=== PATIENT | female | born 1975 | race Caucasian/White ===

== ENCOUNTER → 2017-07-12 | Day surgery (SDC) | payer BC ==
[2017-06-13 12:27] VITALS: Ht 162.6 cm; Wt 60.0 kg
[~2017-07-12] VITALS: Ht 162.6 cm; Wt 60.0 kg
[~2017-07-12] MED LIST: ATROPINE SULFATE 0.1 MG/ML 5ML SYR IV PRN; CHOL1TAB42 PO; DEXAMETHASONE SOD INJ 4 MG/ML VIAL ONE; EpHEDrine SULFATE INJ 50 MG/ML AMP IV PRN; FENTANYL CITRATE INJ 50 MCG/1 ML 2 ML VIAL IV PRN; FENTANYL CITRATE INJ 50 MCG/1 ML 2 ML VIAL ONE; IBUPROFEN 600 MG TAB PO PRN; KETOROLAC TROMETHAMINE 30 MG/ML VIAL IV. PRN; LACTATED RINGER'S 1000ML 1,000 ML IV SCH; LIDOCAINE HCL 2% 2 ML VIAL (20MG/ML) ONE; MIDAZOLAM HCL 1 MG/ML 2ML VIAL ONE; MULT-506 PO; MoRPHine SULFATE 2 MG/ML CARP IV PRN; MoRPHine SULFATE 4 MG/ML 1 ML CARP\\VIAL IV PRN; ONDANSETRON INJ 2 MG/ML 2 ML VIAL IV PRN; ONDANSETRON INJ 2 MG/ML 2 ML VIAL ONE; OXYCODONE/ACETAMINOPHEN 5-325 TAB PO PRN; PROPOFOL IV EMULSION 10 MG/ML 20 ML VIAL IV ONE; SODIUM CHLORIDE 0.9% 1000ML 1,000 ML IV SCH
--- NOTE | 2017-07-12 10:45 | History & Physical Bridge - [place] ---
H&P Re-Evaluation Bridge Note: I have examined the patient, reviewed the History & Physical and in the interval since the performance of the History & Physical I have noted the following changes of clinical significance: No changes noted
--- NOTE | 2017-07-12 12:13 | Discharge Instructions ---
Discharge Instructions Date of Service Jul 12, 2017. Visit Reason for Visit: Thickened Endometrium, Endometrial Mass Discharge Discharge Diagnosis / Problem: s/p D&C/hysteroscopy Discharge Goals Goal(s): Specific goals Activity Recommendations Activity Limitations: per Instructions/Follow-up section Anesthesia . Post Anesthesia Instructions: If you have had General Anesthesia or IV Sedation: * Do not drive today. * Resume driving when surgeon permits. * Do not make important decisions or sign legal documents today. * Call surgeon for: 1. Temperature elevations greater than 101 degrees F. 2. Uncontrollable pain. 3. Excessive bleeding. 4. Persistent nausea and vomiting. 5. Medication intolerance (nausea, vomiting or rash). * For nausea and vomiting use only clear liquids such as: tea, soda, bouillon until nausea subsides, then gradually increase diet as tolerated. * If you have any concerns or questions, call your surgeon's office. If physician is unavailable and it is an emergency, call 911 or go to the nearest emergency room. . Instructions / Follow-Up Instructions / Follow-Up ACTIVITY RECOMMENDATIONS: * Avoid tampons, douching, hot tubs, pools, and intercourse until bleeding has stopped. * May shower as usual. * No strenuous activity for 24-48 hours. After 24-48 hours, you may do anything you feel like doing (driving and sports are okay). SPECIAL CARE INSTRUCTIONS: Special Diet: * Mild nausea may occur in the immediate post-operative period. * Take clear liquids such as tea, cola or bouillon until all nausea has subsided; you may then resume your normal diet. Special Care: * Light bleeding and vaginal spotting can last from a few days to 3-4 weeks. Call your doctor if bleeding becomes heavier than the heaviest part of your period. * Check your temperature twice a day for one week. If it goes above 100.4 degrees Fahrenheit (38.0 Celsius), notify your doctor. * Call your doctor's office for an appointment for 6 weeks after your surgery. FOLLOW-UP VISIT: Call your doctor's office for an appointment for 6 weeks after your surgery. Diet Recommendations Recommended Home Diet: no limitations, resume previous diet Procedures Procedures Performed: Dilatation & Curettage, Hysteroscopy, Polypectomy with Myosure Pending Studies Studies pending at discharge: no Medical Emergencies . Who to Call and When: Medical Emergencies: If at any time you feel your situation is an emergency, please call 911 immediately. . Non-Emergent Contact Non-Emergency issues call your: Rad Tech . . "Provider Documentation" section prepared by Raven Morris. .
--- NOTE | 2017-07-12 12:14 | [facility] Post Operative Brief Note ---
Immediate Operative Summary Operative Date Jul 12, 2017. Pre-Operative Diagnosis Thickened Endometrium, Endometrial Mass Post-Operative Diagnosis Same Procedure(s) Performed Dilatation & Curettage, Hysteroscopy, Polypectomy with Myosure Surgeon Dr. Morris Gate Shear Operator Surgeon(s) None Estimated Blood Loss 5 ml Findings uterus sounded to 10cm. fluffy and irregular endometrium, could not appreciate a polyp Fluids (cc crystalloids) 450cc, 65 cc deficit Specimens A.) Endometrial Curettings Drains none Anesthesia lma Complication(s) None Disposition Recovery Room / PACU
[2017-07-12 13:18] VITALS: TEMP 37.3
[2017-07-12 13:31] VITALS: BP 133/88; PULSE 83; O2SAT 100
--- NOTE | 2017-07-12 13:32 | Anesthesia Progress Nt - [facility] ---
Anesthesia Post Op Note Date & Time Jul 12, 2017 at 13:32 Vital Signs Pain Intensity: 0 Vital Signs Past 12 Hours Date Time Temp Pulse Resp B/P (MAP) Pulse Ox O2 Delivery O2 Flow Rate FiO2 07/12/17 13:18 37.3 64 16 128/82 (97) 100 Room Air 07/12/17 12:56 37.3 74 15 07/12/17 12:56 74 15 116/77 100 07/12/17 12:51 75 15 07/12/17 12:51 74 15 119/85 100 07/12/17 12:46 74 17 07/12/17 12:46 75 17 121/91 98 07/12/17 12:41 78 9 118/83 100 07/12/17 12:41 78 9 07/12/17 12:36 74 15 07/12/17 12:36 75 15 126/89 100 07/12/17 12:31 36.8 86 12 130/92 100 Mask 6 07/12/17 12:31 69 13 07/12/17 12:31 67 13 119/90 100 07/12/17 12:26 79 12 130/86 100 07/12/17 12:26 79 12 07/12/17 12:22 130/92 07/12/17 09:57 36.7 110 16 146/91 (109) 99 Room Air Notes Mental Status: alert / awake / arousable, participated in evaluation Pt Amnestic to Procedure: Yes Nausea / Vomiting: adequately controlled Pain: adequately controlled Airway Patency, RR, SpO2: stable & adequate BP & HR: stable & adequate Hydration State: stable & adequate Anesthetic Complications: no major complications apparent
--- NOTE | 2017-07-17 15:46 | OPERATIVE REPORT ---
DATE OF OPERATION: 07/12/2017 PREOPERATIVE DIAGNOSES: Thickened endometrium with endometrial mass, suspected endometrial mass. POSTOPERATIVE DIAGNOSIS: Same. PROCEDURE: D&C, hysteroscopy and possible polypectomy with MyoSure. SURGEON: Raven Morris M.D. ANESTHESIA: General per laryngeal mask. ESTIMATED BLOOD LOSS: 5 mL. FLUIDS: 450 mL of IV fluids with a 65 mL deficit. INDICATIONS: The patient is a 41-year-old white female who was having an ultrasound to follow up on findings of a complex left ovarian cyst. At the time of her most recent ultrasound a very thickened endometrium was noted. SIS revealed thickened endometrium with probable endometrial mass. The patient underwent a D&C, hysteroscopy with polypectomy in the past and so was advised to proceed with this again. FINDINGS: At the time of surgery revealed the uterus to be sounded to 10 cm. Fluffy irregular endometrium was appreciated, especially on the anterior abdominal wall. No appreciable polyp could be noted. COMPLICATIONS: None. DRAINS: None. DISPOSITION: To recovery room in stable condition. PROCEDURE: The patient was taken to the operating room where she was identified verbally and by bracelet. She was placed in dorsal supine position where general anesthesia was induced without difficulty. She was placed in dorsal lithotomy position, prepped and draped in normal sterile fashion. Timeout was held identifying correct patient, procedure and positioning. The bladder was drained of urine and exam under anesthesia revealed a normal size, slightly anteverted uterus that was mobile. There were no appreciable adnexal masses or tenderness. A weighted speculum was placed in the posterior vagina and the anterior lip of the cervix was grasped with single tooth tenaculum. The uterus sounded to 10 cm, was dilated to #23 Hegar dilator. The MyoSure hysteroscope was introduced into the uterus with the above noted findings. The MyoSure device was used to remove tissue on the anterior abdominal wall where it was fluffy and irregular and questionably polypoid. A curettage was then performed in 365 degrees and the procedure was thus terminated. All sponge, lap and needle counts were correct x2. The patient tolerated the procedure well and was taken to recovery room in stable condition. I attest to the content of the Intraoperative Record and any orders documented therein. Any exception s are noted below.
== END | disposition home or self-care (01) ==
LOC: X.SURG 09:48
PROVIDERS: ATTEND Obstetrics & Gynecology
DX: N94.89 Other specified conditions associated with female genital organs and menstrual cycle (principal); R93.8 Abnormal findings on diagnostic imaging of other specified body structures; F41.9 Anxiety disorder, unspecified; K58.9 Irritable bowel syndrome, unspecified